=== PATIENT | male | born 1965 | race Caucasian/White ===

== ENCOUNTER 2021-12-25 10:57 | Inpatient (IN) ==
[2021-12-25] MEDS ORDERED: 0.9 % Sodium Chloride 1,000 ML IVC ONE ×2 (11:49→15:11)
[2021-12-25] MEDS ORDERED: *HR* FentaNYL (PF) 100 MCG/2 ML VIAL IVP ONE (11:49)
[2021-12-25] MEDS ORDERED: Ondansetron 4 MG/2 ML VIAL IVP ONE ×2 (11:49→14:47)
[2021-12-25 12:17] LABS: Basophils % 0.3 %; Eosinophils % 0.1 %; Hematocrit 50.7 % (37.5-50.1); Hemoglobin 16.8 g/dL (12.9-16.9); Immature Granulocytes % 0.4 % (0-4); Lymphocytes # 0.8 K/mcL (0.6-4.6); Lymphocytes % 8.8 %; Mean Corpuscular HGB Conc 33.1 g/dL (31.6-35.5); Mean Corpuscular Hemoglobin 30.1 pg (28.0-33.3); Mean Corpuscular Volume 90.9 fL (83.0-100.0); Mean Platelet Volume 9.7 fL (9.4-12.4); Monocytes # 0.4 K/mcL (0.0-1.3); Monocytes % 4.8 %; Neutrophils # 7.8 K/mcL (1.6-8.9); Platelet Count 264 K/mcL (140-400); Red Blood Count 5.58 M/mcL (4.19-5.50); Red Cell Distribution Width 12.4 % (11.5-14.5); Segmented Neutrophils % 85.6 %; White Blood Count 9.1 K/mcL (4.3-11.1)
[2021-12-25 13:15] LABS: Alanine Aminotransferase 372 Units/L (7-52); Albumin 4.6 g/dL (3.5-5.7); Albumin/Globulin Ratio 1.8 (1.1-2.2); Alkaline Phosphatase 67 Units/L (34-104); Aspartate Amino Transferase 268 Units/L (13-39); BUN/Creatinine Ratio 17 (6-26); Bilirubin,Direct 0.9 mg/dL (0.0-0.2); Bilirubin,Indirect 1.1 mg/dL (0.0-1.0); Blood Urea Nitrogen 16 mg/dL (6-20); Calcium 9.8 mg/dL (8.6-10.3); Carbon Dioxide 27 mEq/L (23-29); Chloride 101 mEq/L (98-107); Globulin 2.6 g/dL (2.4-3.5); Glucose 148 mg/dL (70-105); Lipase > 1800 Units/L (11-82); Osmolality,Calculated 286 (280-300); Sodium 136 mEq/L (136-145); Total Protein 7.2 g/dL (6.4-8.9); eGFR For African Americans > 60 (> 60); eGFR For Non-African Americans > 60 (> 60)
[2021-12-25] MEDS ORDERED: Morphine Sulfate 2 MG/ML SYRINGE IVP ONE (13:31)
[2021-12-25] MEDS ORDERED: Iopamidol - 370 500 ML MLS IVP ONE (13:32)
[2021-12-25 13:59] LABS: Bilirubin,Urine Negative (Negative); Blood,Urine Negative (Negative); Clarity,Urine Clear (Clear); Color,Urine Yellow (Yellow); Glucose,Urine (UA) Normal (Normal); Ketones,Urine Negative (Negative); Leukocyte Esterase,Urine Negative (Negative); Nitrite,Urine Negative (Negative); Protein,Urine Trace mg/dL (Neg-Trace); Specific Gravity,Urine 1.023 (1.010-1.025)
[2021-12-25] MEDS ORDERED: *HR* HYDROmorphone (PF) 1 MG/ML SYRINGE IVP ONE (14:47)
[2021-12-25] MEDS ORDERED: Naloxone 0.4 MG/ML INJ IVP PRN (15:08)
[2021-12-25] MEDS ORDERED: Ondansetron 4 MG/2 ML VIAL IVP PRN (15:08)
[2021-12-25] MEDS ORDERED: Melatonin 3 MG TABLET PO PRN (15:08)
[2021-12-25] MEDS: Ringers Solution, Lactated 1,000 ML IVC SCH ×2 (21:10→21:11)
[2021-12-25] MEDS: Ketorolac 30 MG/ML VIAL IM PRN (21:35)
[2021-12-26] MEDS: Ringers Solution, Lactated 1,000 ML IVC SCH ×4 (02:41→18:33)
[2021-12-26 04:03] LABS: Hematocrit 48.7 % (37.5-50.1); Hemoglobin 15.7 g/dL (12.9-16.9); INR 1.1; Mean Corpuscular HGB Conc 32.2 g/dL (31.6-35.5); Mean Corpuscular Hemoglobin 30.1 pg (28.0-33.3); Mean Corpuscular Volume 93.3 fL (83.0-100.0); Platelet Count 236 K/mcL (140-400); Prothrombin Time 12.2 Seconds (9.4-12.1); Red Blood Count 5.22 M/mcL (4.19-5.50); Red Cell Distribution Width 12.7 % (11.5-14.5); White Blood Count 11.1 K/mcL (4.3-11.1)
[2021-12-26 04:21] LABS: Alanine Aminotransferase 286 Units/L (7-52); Albumin 4.2 g/dL (3.5-5.7); Albumin/Globulin Ratio 1.8 (1.1-2.2); Alkaline Phosphatase 81 Units/L (34-104); Aspartate Amino Transferase 115 Units/L (13-39); BUN/Creatinine Ratio 15 (6-26); Bilirubin,Direct 0.6 mg/dL (0.0-0.2); Bilirubin,Indirect 1.6 mg/dL (0.0-1.0); Bilirubin,Total 2.2 mg/dL (0.3-1.0); Blood Urea Nitrogen 13 mg/dL (6-20); Calcium 9.2 mg/dL (8.6-10.3); Carbon Dioxide 29 mEq/L (23-29); Chloride 100 mEq/L (98-107); Chol/HDL Ratio 2.5 (0-4.9); Cholesterol 144 mg/dL (< 200); Globulin 2.3 g/dL (2.4-3.5); Glucose 98 mg/dL (70-105); HDL Cholesterol 58 mg/dL (40-59); LDL Cholesterol,Calculated 72 mg/dL (< 100); Magnesium 1.9 mg/dL (1.6-2.6); Osmolality,Calculated 290 (280-300); Phosphorous 3.7 mg/dL (2.7-4.5); Potassium 4.4 mEq/L (3.5-5.1); Sodium 140 mEq/L (136-145); Total Protein 6.5 g/dL (6.4-8.9); Triglycerides 70 mg/dL (< 150); eGFR For African Americans > 60 (> 60); eGFR For Non-African Americans > 60 (> 60)
[2021-12-26] MEDS: *HR* Enoxaparin 40 MG/0.4 ML SYRINGE SQ SCH (05:09)
[2021-12-26] MEDS: Ketorolac 30 MG/ML VIAL IM PRN (05:10)
[2021-12-26] MEDS: Acetaminophen IV 1,000 MG/100 ML BAG IVPB SCH ×3 (12:00→23:34)
[2021-12-27] MEDS: Ringers Solution, Lactated 1,000 ML IVC SCH ×4 (00:54→22:06)
[2021-12-27 01:54] LABS: Basophils % 0.2 %; Eosinophils % 0.4 %; Hematocrit 41.9 % (37.5-50.1); Immature Granulocytes % 0.4 % (0-4); Lymphocytes # 1.2 K/mcL (0.6-4.6); Lymphocytes % 10.3 %; Mean Corpuscular HGB Conc 32.5 g/dL (31.6-35.5); Mean Corpuscular Volume 92.3 fL (83.0-100.0); Mean Platelet Volume 10.3 fL (9.4-12.4); Monocytes # 0.8 K/mcL (0.0-1.3); Monocytes % 6.7 %; Neutrophils # 9.3 K/mcL (1.6-8.9); Platelet Count 207 K/mcL (140-400); Red Blood Count 4.54 M/mcL (4.19-5.50); Red Cell Distribution Width 12.5 % (11.5-14.5); White Blood Count 11.3 K/mcL (4.3-11.1)
[2021-12-27 01:55] LABS: Hemoglobin 13.6 g/dL (12.9-16.9)
[2021-12-27 02:17] LABS: Alanine Aminotransferase 164 Units/L (7-52); Albumin 3.7 g/dL (3.5-5.7); Albumin/Globulin Ratio 1.5 (1.1-2.2); Alkaline Phosphatase 66 Units/L (34-104); Aspartate Amino Transferase 40 Units/L (13-39); BUN/Creatinine Ratio 11 (6-26); Bilirubin,Direct 0.4 mg/dL (0.0-0.2); Bilirubin,Indirect 1.7 mg/dL (0.0-1.0); Bilirubin,Total 2.1 mg/dL (0.3-1.0); Blood Urea Nitrogen 8 mg/dL (6-20); Calcium 8.8 mg/dL (8.6-10.3); Carbon Dioxide 29 mEq/L (23-29); Chloride 101 mEq/L (98-107); Globulin 2.5 g/dL (2.4-3.5); Glucose 86 mg/dL (70-105); Osmolality,Calculated 284 (280-300); Sodium 138 mEq/L (136-145); Total Protein 6.2 g/dL (6.4-8.9); eGFR For African Americans > 60 (> 60); eGFR For Non-African Americans > 60 (> 60)
[2021-12-27] MEDS: *HR* Enoxaparin 40 MG/0.4 ML SYRINGE SQ SCH (05:48)
[2021-12-27] MEDS: Acetaminophen IV 1,000 MG/100 ML BAG IVPB SCH ×3 (05:48→17:01)
[2021-12-27] MEDS ORDERED: *HR* Midazolam HCl 2 MG/2 ML VIAL ONE (09:19)
[2021-12-27] MEDS ORDERED: Ketamine HCL *QUVA* 50mg (1mL) SYRINGE ONE (09:19)
[2021-12-27] MEDS ORDERED: *HR* FentaNYL (PF) 100 MCG/2 ML VIAL ONE ×2 (09:19→11:18)
[2021-12-27] MEDS ORDERED: *HR* Propofol 200 MG/20 ML VIAL IVP ONE (09:20)
[2021-12-27] MEDS ORDERED: Lidocaine -MPF 2% 5 ML VIAL ONE (09:21)
[2021-12-27] MEDS ORDERED: *HR* Rocuronium Bromide 50 MG/5 ML VIAL ONE (09:21)
[2021-12-27] MEDS ORDERED: *HR* Succinylcholine 200 MG/10 ML VIAL IVP ONE (09:21)
[2021-12-27] MEDS ORDERED: Iopamidol - 300 50 ML VIAL ONE (10:08)
[2021-12-27] MEDS ORDERED: Ondansetron 4 MG/2 ML VIAL ONE (10:52)
[2021-12-27] MEDS ORDERED: Ketorolac 30 MG/ML VIAL ONE (10:53)
[2021-12-27] MEDS ORDERED: CeFAZolin 2,000 MG/120 ML BAG IVPB ONE (11:11)
[2021-12-27] MEDS ORDERED: *HR* Labetalol 20 MG/4 ML SYRINGE IVP ONE (11:23)
[2021-12-27] MEDS ORDERED: Sugammadex Sodium 200 MG/2 ML VIAL IV ONE (11:47)
[2021-12-27] MEDS ORDERED: Ringers Solution, Lactated 1,000 ML IVC SCH (12:45)
[2021-12-27] MEDS ORDERED: Melatonin 3 MG TABLET PO PRN (12:57)
[2021-12-27] MEDS ORDERED: Naloxone 0.4 MG/ML INJ IVP PRN (12:57)
[2021-12-27] MEDS ORDERED: Ondansetron 4 MG/2 ML VIAL IVP PRN (12:57)
[2021-12-27] MEDS: ceFAZolin 1,000 MG in Water for inj. (sterile) 10 ML IVP SCH (15:00)
[2021-12-28] MEDS: Acetaminophen IV 1,000 MG/100 ML BAG IVPB SCH ×5 (00:09→23:57)
[2021-12-28] MEDS: ceFAZolin 1,000 MG in Water for inj. (sterile) 10 ML IVP SCH ×2 (00:09→07:27)
[2021-12-28 04:43] LABS: Hematocrit 39.3 % (37.5-50.1); Mean Corpuscular HGB Conc 33.1 g/dL (31.6-35.5); Mean Corpuscular Hemoglobin 30.2 pg (28.0-33.3); Mean Corpuscular Volume 91.4 fL (83.0-100.0); Mean Platelet Volume 10.4 fL (9.4-12.4); Platelet Count 212 K/mcL (140-400); Red Cell Distribution Width 12.5 % (11.5-14.5); White Blood Count 11.7 K/mcL (4.3-11.1)
[2021-12-28 04:53] LABS: Alanine Aminotransferase 162 Units/L (7-52); Albumin 3.5 g/dL (3.5-5.7); Albumin/Globulin Ratio 1.3 (1.1-2.2); Alkaline Phosphatase 105 Units/L (34-104); Aspartate Amino Transferase 67 Units/L (13-39); BUN/Creatinine Ratio 14 (6-26); Bilirubin,Direct 0.2 mg/dL (0.0-0.2); Bilirubin,Total 1.2 mg/dL (0.3-1.0); Blood Urea Nitrogen 11 mg/dL (6-20); Calcium 8.4 mg/dL (8.6-10.3); Carbon Dioxide 26 mEq/L (23-29); Chloride 103 mEq/L (98-107); Globulin 2.6 g/dL (2.4-3.5); Glucose 110 mg/dL (70-105); Osmolality,Calculated 284 (280-300); Potassium 4.2 mEq/L (3.5-5.1); Sodium 137 mEq/L (136-145); Total Protein 6.1 g/dL (6.4-8.9); eGFR For African Americans > 60 (> 60); eGFR For Non-African Americans > 60 (> 60)
[2021-12-28] MEDS: *HR* Enoxaparin 40 MG/0.4 ML SYRINGE SQ SCH (05:22)
[2021-12-28] MEDS: Ringers Solution, Lactated 1,000 ML IVC SCH (07:28)
[2021-12-28] MEDS ORDERED: *HR* Succinylcholine 200 MG/10 ML VIAL IVP ONE (17:55)
[2021-12-28] MEDS ORDERED: *HR* FentaNYL (PF) 100 MCG/2 ML VIAL ONE (18:02)
[2021-12-28] MEDS ORDERED: Ondansetron 4 MG/2 ML VIAL ONE (18:02)
[2021-12-28] MEDS ORDERED: *HR* Rocuronium Bromide 50 MG/5 ML VIAL ONE (18:02)
[2021-12-28] MEDS ORDERED: *HR* Propofol 200 MG/20 ML VIAL IVP ONE (18:02)
[2021-12-28] MEDS ORDERED: Lidocaine -MPF 4% 5 ML AMPUL ONE (18:02)
[2021-12-28] MEDS ORDERED: Sugammadex Sodium 200 MG/2 ML VIAL IV ONE (18:34)
[2021-12-28 19:15] VITALS: TEMP 97.6
[2021-12-28] MEDS: Lisinopril-HCTZ 20-12.5mg TABLET PO SCH (23:58)
[2021-12-29 00:19] VITALS: BP 164/88; PULSE 79; O2SAT 92
[2021-12-29] MEDS: Acetaminophen IV 1,000 MG/100 ML BAG IVPB SCH (05:07)
[2021-12-29] MEDS: *HR* Enoxaparin 40 MG/0.4 ML SYRINGE SQ SCH (05:08)
[2021-12-29 08:12] LABS: Albumin 3.7 g/dL (3.5-5.7); Albumin/Globulin Ratio 1.4 (1.1-2.2); Bilirubin,Direct 0.2 mg/dL (0.0-0.2); Bilirubin,Indirect 0.8 mg/dL (0.0-1.0); Globulin 2.7 g/dL (2.4-3.5); Total Protein 6.4 g/dL (6.4-8.9)
[2021-12-29] MEDS: Lisinopril-HCTZ 20-12.5mg TABLET PO SCH (09:53)
== END 2021-12-29 10:35 | disposition home or self-care (01) | DRG 418 ==
LOC: SUATTDRO → EMEROOARM 10:57 → 3ANU 10:57 → SUATTDRO 18:44 → 3ANU 19:30
PROVIDERS: ADMIT Internal Medicine; ATTEND Internal Medicine